=== PATIENT | female | born 2000 | race Caucasian/White ===

== ENCOUNTER 2021-01-22 09:39 | Inpatient (IN) ==
[2021-01-22] MEDS ORDERED: ONDANSETRON INJ 2 MG/ML 2 ML VIAL IV STA (09:57)
[2021-01-22] MEDS ORDERED: SODIUM CHLORIDE 0.9% 1000ML 1,000 ML IV STA (09:57)
[2021-01-22 10:23] LABS: Hematocrit (blood only) 38.8 % (37-47); Hemoglobin 12.9 g/dL (12.0-16.0); Mean Corpuscular Hemoglobin 24.4 pg (25-34); Mean Corpuscular Hgb Conc 33.2 g/dL (32-36); Mean Corpuscular Volume 73.5 fL (80-100); Mean Platelet Volume 9.3 fL (7.4-10.4); Platelet Count 290 K/uL (130-400); RDW Standard Deviation 37.2 fL (36.4-46.3); Red Blood Count 5.28 M/uL (4.2-5.4); White Blood Count 9.98 K/uL (4.8-10.8)
--- NOTE | 2021-01-22 10:32 | Emergency Department Note ---
Impression & Plan Small bowel obstruction, Crohn disease, Nausea & vomiting, Abdominal pain, Dehydration ED Provider Note NAME: BRITTANY GUTIERREZ AGE: 20 SEX: F : 2000 ARRIVES VIA: Walk-In INFORMANT: Patient, ED PROVIDER(S): John Sheehan MD Chief Complaint: Abdominal pain, nausea vomiting HPI: Patient does present with the above symptoms and states that she developed abdominal pain primarily in the mid and lower abdomen that is uncomfortable and nonradiating. The patient denies any dysuria hematuria. The patient does have a history of Crohn's and is unsure as to whether not this is a flare but the patient states that she is not had vomiting with a prior Crohn's flare. The patient denies any known sick contacts. The patient does live in [place] and did travel home over the holiday break but states that she has no known family overs or friends with known illness. Patient denies any fevers or chills. The patient did have innumerable episodes of nonbloody emesis this morning. Patient was unable to take anything this morning and the patient symptoms have been relatively constant. The patient did not want to take anything further at for greater symptoms. The patient is not vomiting in the last hour. ROS: See HPI for pertinent positives and negatives. A total of 10 systems were reviewed and otherwise negative. Past medical history: See below Surgical history: See below Social history: See below Physical Exam: GENERAL: Mildly uncomfortable in appearance, wearing a mask. EYE EXAM: Normal conjunctiva. PERRL, no anisocoria and EOM's grossly intact w/o pain. NECK: Supple, no nuchal rigidity, no adenopathy, non-tender. No signs of meningismus. FROM of the neck with good chin to chest and neck extension. No stridor. LUNGS: Clear to auscultation. Normal chest wall mechanics. HEART: NSR, no MRG. ABDOMEN: Abdomen soft, mid abdominal and lower abdominal pain most prominent left lower quadrant, normo-active bowel sounds, no masses, no rebound or guarding. BACK: No CVA TTP. SKIN: No rashes and no bruising. UPPER EXTREMITIES: Upper extremities are grossly normal. LOWER EXTREMITIES: Grossly normal, no edema. NEURO EXAM: A&O x3, cranial nerves II-XII grossly intact, normal speech, moves all 4 extremities on command w/o issue. Good finger to nose, no drift, no sensory deficits. Differential diagnoses: Gastroenteritis, food borne illness, infections, appendicitis, diverticulitis, inflammatory bowel disease, obstruction, GI bleed, biliary pathology, volvulus, as well as other pathologies. Course: Patient was seen and evaluated the bedside. Full history physical exam was perf ormed. Imaging Studies: See Below Cardiac monitoring: An order was placed for continuous cardiac monitoring. The monitor shows a rate of 92 with sinus rhythm. MDM: Patient was seen due to concern for abdominal pain nausea vomiting. Blood work was obtained along with CT abdomen pelvis. Patient treated with IV fluids and antiemetics. Patient declined any pain medication. Patient's blood work fairly unremarkable. Covid negative. CT did show concern for bowel obstruction. I did speak with the on-call general surgeon Dr. Estrada who recommended GI consult and admit to medicine. GI was consulted and recommended steroids. No NG at this time as the patient is had no further vomiting. I did speak with the on-call hospitalist Dr. Nino and the patient was admitted to the medicine service. Past Med/Surg History Medical History Crohn disease GERD (gastroesophageal reflux disease) Surgical History No pertinent past surgical history Family History Other Family history non-contributory Social History Smoking Status: Never smoker Hx Alcohol Use: Yes Alcohol type: beer and hard liquor Hx Substance Use: No Preferred Language: Luxembourger Communication Ability: Effective Bakery Clerk Required: No Beliefs That Will Affect Care: None Current Living Situation: Other Current Living Situation Comment: roomates current occupational status: student current occupation: [employer] student studying [employer] Other Information That Helps Us Care for You: No Feels Safe at Home: Yes Safety Concerns: Feels Safe At This Time Immunizations: Vaccinated for flu and COVID-19 Home Meds Home Medications Medication Instructions Recorded Confirmed adalimumab 40 mg/0.4 mL 40 mg SUBCUT UD 01/22/21 01/22/21 subcutaneous syringe kit (Humira(CF)) ergocalciferol (vitamin D2) 1,250 50,000 unit PO MONTHLY 01/22/21 01/22/21 mcg (50,000 unit) capsule mesalamine 500 mg 1,000 mg PO QID 01/22/21 01/22/21 capsule,controlled release (Pentasa) norgestimate 0.25 mg-ethinyl 1 tab PO DAILY 01/22/21 01/22/21 estradiol 35 mcg tablet (Sprintec (28)) omeprazole 20 mg capsule,delayed 20 mg PO DAILY 01/22/21 01/22/21 release Results & Data (ED) Vital Signs Vital Signs - 24 hr 01/22/21 09:41 01/22/21 11:23 Temperature 36.4 C L Temperature Source Temporal Artery Scan Pulse Rate 89 Pulse Rate [Right] 76 Pulse Rhythm [Right] Regular Pulse Strength [Right] Normal Respiratory Rate 18 16 Respiratory Effort / Characteristics Non-Labored Spontaneous Respiratory Depth Normal Blood Pressure 124/82 Blood Pressure [Right Arm] 137/75 Blood Pressure Mean 96 Blood Pressure Mean [Right Arm] 95 Blood Pressure Position Sitting Blood Pressure Position [Right Arm] Lying Pulse Oximetry 96 100 Oxygen Delivery Method Room Air Room Air Sepsis Recent Fever Within 48 Hours No Sepsis New/Unexplained Change in Mental Status No Sepsis Action Taken by Nursing No Action Required Home Medications Current Medication List: was personally reviewed by me Laboratory Data Attestation: I reviewed the patient's lab results. Result diagrams: 01/22/21 10:15 01/22/21 10:15 Lab Results 01/22/21 01/22/21 01/22/21 Range/Units 10:15 10:15 10:15 WBC 9.98 (4.8-10.8) K/uL RBC 5.28 (4.2-5.4) M/uL Hgb 12.9 (12.0-16.0) g/dL Hct 38.8 (37-47) % MCV 73.5 L (80-100) fL MCH 24.4 L (25-34) pg MCHC 33.2 (32-36) g/dL RDW Std Deviation 37.2 (36.4-46.3) fL RDW Coeff of Vik 14.0 (11.5-14.5) % Plt Count 290 (130-400) K/uL MPV 9.3 (7.4-10.4) fL Immature Gran % (Auto) 0.1 % Neut % (Auto) 75.3 % Lymph % (Auto) 22.4 % [place] % (Auto) 2.1 % Eos % (Auto) 0.0 % Baso % (Auto) 0.1 % Neut # (Auto) 7.51 H (1.4-6.5) K/uL Lymph # (Auto) 2.24 (1.2-3.4) K/uL [place] # (Auto) 0.21 (0.11-0.59) K/uL Eos # (Auto) 0.00 (0-0.5) K/uL Baso # (Auto) 0.01 (0-0.2) K/uL Immature Gran # (Auto) 0.01 (0.00-0.02) K/uL Neutrophils % (Manual) 68.5 % Lymphocytes % (Manual) 9.6 % Reactive Lymphs % (Man) 21.9 % Neutrophils # (Manual) 6.84 H (1.4-6.5) K/uL Total Absolute Neuts 6.84 H (1.4-6.5) K/uL Lymphocytes # (Manual) 0.96 L (1.2-3.4) K/uL Reactive Lymphs # 2.19 K/uL Total Abs Lymphocytes 3.14 (1.2-3.4) K/uL Microcytosis Present Sodium 136 (136-145) mmol/L Potassium 3.6 (3.5-5.1) mmol/L Chloride 108 H (98-107) mmol/L Carbon Dioxide 17 L (21-32) mmol/L Anion Gap 11.0 (3-11) BUN 15 (7-18) mg/dl Creatinine 0.89 (0.6-1.2) mg/dl Est Cr Clr Drug Dosing 86.1 ml/min Est GFR ( Amer) 108.1 ml/min Est GFR (Non-Af Amer) 93.3 ml/min BUN/Creatinine Ratio 17.1 (10-20) Glucose 118 H (70-99) mg/dl Calcium 9.8 (8.5-10.1) mg/dl Total Bilirubin 0.4 (0.2-1) mg/dl AST 22 (15-37) U/L ALT 24 (12-78) U/L Alkaline Phosphatase 69 (45-117) U/L C-Reactive Protein (0-0.29) mg/dl Total Protein 9.3 H (6.4-8.2) gm/dl Albumin 3.8 (3.4-5.0) gm/dl Globulin 5.5 H (2.5-4.0) gm/dl Albumin/Globulin Ratio 0.7 L (0.9-2) Lipase 255 (73-393) U/L TSH (0.300-4.500) uIu/ml Urine Color Urine Appearance (Clear) Urine pH (4.5-7.5) Ur Specific [place] (1.000-1.030) Urine Protein (Negative) Urine Glucose (UA) (Negative) Urine Ketones (Negative) Urine Blood (Negative) Urine Nitrite (Negative) Urine Bilirubin (Negative) Urine Urobilinogen (Negative) Ur Leukocyte Esterase (Negative) SARS-CoV-2, RNA, NAAT NEGATIVE (NEGATIVE) 01/22/21 01/22/21 Range/Units 10:15 13:10 WBC (4.8-10.8) K/uL RBC (4.2-5.4) M/uL Hgb (12.0-16.0) g/dL Hct (37-47) % MCV (80-100) fL MCH (25-34) pg MCHC (32-36) g/dL RDW Std Deviation (36.4-46.3) fL RDW Coeff of Vik (11.5-14.5) % Plt Count (130-400) K/uL MPV (7.4-10.4) fL Immature Gran % (Auto) % Neut % (Auto) % Lymph % (Auto) % [place] % (Auto) % Eos % (Auto) % Baso % (Auto) % Neut # (Auto) (1.4-6.5) K/uL Lymph # (Auto) (1.2-3.4) K/uL [place] # (Auto) (0.11-0.59) K/uL Eos # (Auto) (0-0.5) K/uL Baso # (Auto) (0-0.2) K/uL Immature Gran # (Auto) (0.00-0.02) K/uL Neutrophils % (Manual) % Lymphocytes % (Manual) % Reactive Lymphs % (Man) % Neutrophils # (Manual) (1.4-6.5) K/uL Total Absolute Neuts (1.4-6.5) K/uL Lymphocytes # (Manual) (1.2-3.4) K/uL Reactive Lymphs # K/uL Total Abs Lymphocytes (1.2-3.4) K/uL Microcytosis Sodium (136-145) mmol/L Potassium (3.5-5.1) mmol/L Chloride (98-107) mmol/L Carbon Dioxide (21-32) mmol/L Anion Gap (3-11) BUN (7-18) mg/dl Creatinine (0.6-1.2) mg/dl Est Cr Clr Drug Dosing ml/min Est GFR ( Amer) ml/min Est GFR (Non-Af Amer) ml/min BUN/Creatinine Ratio (10-20) Glucose (70-99) mg/dl Calcium (8.5-10.1) mg/dl Total Bilirubin (0.2-1) mg/dl AST (15-37) U/L ALT (12-78) U/L Alkaline Phosphatase (45-117) U/L C-Reactive Protein 0.54 H (0-0.29) mg/dl Total Protein (6.4-8.2) gm/dl Albumin (3.4-5.0) gm/dl Globulin (2.5-4.0) gm/dl Albumin/Globulin Ratio (0.9-2) Lipase (73-393) U/L TSH 1.860 (0.300-4.500) uIu/ml Urine Color Yellow Urine Appearance Clear (Clear) Urine pH 5.0 (4.5-7.5) Ur Specific [place] > 1.045 H (1.000-1.030) Urine Protein Negative (Negative) Urine Glucose (UA) Negative (Negative) Urine Ketones 3+ H (Negative) Urine Blood Negative (Negative) Urine Nitrite Negative (Negative) Urine Bilirubin Negative (Negative) Urine Urobilinogen Negative (Negative) Ur Leukocyte Esterase Negative (Negative) SARS-CoV-2, RNA, NAAT (NEGATIVE) Administered Medications Lactated Ringer's (Lr) 1,000 mls @ 125 mls/hr IV .Q8H LORENZO Stop: 02/21/21 13:29 Last Admin: 01/22/21 13:49 Dose: 125 mls/hr Documented by: [id number] Discontinued Medications Sodium Chloride (Nss 1000ml) 1,000 mls @ 999 mls/hr IV .Q1H1M STA Stop: 01/22/21 10:57 Last Infusion: 01/22/21 11:20 Dose: 0 mls/hr Documented by: [id number] Admin: 01/22/21 10:16 Dose: 999 mls/hr Documented by: [id number] Ioversol (Optiray 320 100ml) 95 ml IV ONCE ONE Stop: 01/22/21 11:16 Last Admin: 01/22/21 11:06 Dose: 95 ml Documented by: [id number] Morphine Sulfate (Morphine Sulfate 4 Mg/Ml 1 Ml Carp\Vial) 4 mg IV NOW STA Stop: 01/22/21 12:38 Last Admin: 01/22/21 12:59 Dose: 4 mg Documented by: [id number] Ondansetron HCl (Ondansetron Inj 2 Mg/Ml 2 Ml Vial) 4 mg IV NOW STA Stop: 01/22/21 09:58 Last Admin: 01/22/21 10:16 Dose: 4 mg Documented by: [id number] Imaging Data Radiologist's Impression: Abdomen/Pelvis CT 01/22/21 09:57 CT OF THE ABDOMEN AND PELVIS WITH CONTRAST CLINICAL HISTORY: Lower abdominal pain; vomiting; h/o crohn's COMPARISON STUDY: None. TECHNIQUE: Following IV administration of 95 mL of Optiray, axial images of the abdomen and pelvis were obtained from the lung bases to the proximal femurs. Images were reviewed in the axial, sagittal, and coronal planes. IV contrast was administered without complication. Automated exposure control was utilized for the study. A dose lowering technique was utilized adhering to the principles of ALARA. CT DOSE: 298.91 mGy.cm FINDINGS: Lung bases are unremarkable. No pneumatosis, free air or portal venous gas is present. The liver, spleen, adrenal glands, kidneys and pancreas are unremarkable. There is no hydronephrosis. No biliary or pancreatic ductal dilatation is present. There is no peripancreatic or pericholecystic infiltration. A small amount of abdominal and pelvic ascites is noted. Several loops of mildly dilated fluid-filled distal ileum are noted. There is stool within the terminal ileum. The small bowel appears to be dilated to the level of the ileocecal valve. There is no free air or abscess. No fistulas identified. The appendix is normal. The colon is decompressed. Equivocal wall thickening of the cecum may be due to underdistention. Major vasculature is patent. No acute fracture or suspicious lesion is identified within the visualized skeletal structures. IMPRESSION: Findings consistent with a small bowel obstruction. Multiple loops of mildly dilated distal ileum. Small bowel appears to be dilated to the level of the ileocecal valve. Possible etiologies for the small bowel obstruction include mucosal edema or occult stricture. No free air, abscess or fistula. Normal appendix. Small amount of associated abdominal and pelvic ascites. ACT 112: Negative or not required by law. Electronically signed by: Jae Francis M.D. 01/22/2021 11:41 AM Discharge Plan Visit Data Chief Complaint: Vomiting Stated Complaint: VOMITING FOR 6 HOURS, ABDOMINAL PAIN ED Provider: John Sheehan Discharge Problem: Small bowel obstruction, Crohn disease, Nausea & vomiting, Abdominal pain, Dehydration Patient Disposition: Admitted As Inpatient Discharge Instructions Interventions: ED Discharge Assessment Last Done: 01/22/21 14:07
[2021-01-22 10:48] LABS: ALC (manual) 3.14 K/uL (1.2-3.4); ANC (manual) 6.84 K/uL (1.4-6.5); Lymphocytes # (manual) 0.96 K/uL (1.2-3.4); Lymphocytes % (manual) 9.6 %; Neutrophils # (manual) 6.84 K/uL (1.4-6.5); Neutrophils % (manual) 68.5 %; Reactive Lymphocytes # (manual) 2.19 K/uL; Reactive Lymphocytes % (manual) 21.9 %
[2021-01-22 10:49] LABS: Albumin Level 3.8 gm/dl (3.4-5.0); BUN Creatinine Ratio 17.1 (10-20); Calcium 9.8 mg/dl (8.5-10.1); Creatinine Clr Calc Pharmacy 86.1 ml/min; Est GFR (African American) 108.1 ml/min; Est GFR (Non-African American) 93.3 ml/min; Microcytosis Present; Potassium 3.6 mmol/L (3.5-5.1)
[2021-01-22 10:52] LABS: Albumin Globulin Ratio 0.7 (0.9-2); Bilirubin,Total 0.4 mg/dl (0.2-1); Globulin 5.5 gm/dl (2.5-4.0); Total Protein 9.3 gm/dl (6.4-8.2)
[2021-01-22] MEDS ORDERED: OPTIRAY 320 100ml IV ONE (11:15)
--- NOTE | 2021-01-22 11:42 | CT Scan Report ---
CT OF THE ABDOMEN AND PELVIS WITH CONTRAST CLINICAL HISTORY: Lower abdominal pain; vomiting; h/o crohn's COMPARISON STUDY: None. TECHNIQUE: Following IV administration of 95 mL of Optiray, axial images of the abdomen and pelvis we re obtained from the lung bases to the proximal femurs. Images were reviewed in the axial, sagittal, and coronal planes. IV contrast was administered without complication. Automated exposure control wa s utilized for the study. A dose lowering technique was utilized adhering to the principles of ALARA . CT DOSE: 298.91 mGy.cm FINDINGS: Lung bases are unremarkable. No pneumatosis, free air or portal venous gas is present. The liver, spleen, adrenal glands, kidneys and pancreas are unremarkable. There is no hydronephrosis. No biliary or pancreatic ductal dilatation is present. There is no peripancreatic or pericholecystic inf iltration. A small amount of abdominal and pelvic ascites is noted. Several loops of mildly dilated f luid-filled distal ileum are noted. There is stool within the terminal ileum. The small bowel appears to be dilated to the level of the ileocecal valve. There is no free air or abscess. No fistulas iden tified. The appendix is normal. The colon is decompressed. Equivocal wall thickening of the cecum may be due to underdistention. Major vasculature is patent. No acute fracture or suspicious lesion is id entified within the visualized skeletal structures. IMPRESSION: Findings consistent with a small bowel obstruction. Multiple loops of mildly dilated distal ileum. Sm all bowel appears to be dilated to the level of the ileocecal valve. Possible etiologies for the smal l bowel obstruction include mucosal edema or occult stricture. No free air, abscess or fistula. Tessy l appendix. Small amount of associated abdominal and pelvic ascites. ACT 112: Negative or not required by law. Electronically signed by: Jae Francis M.D. 01/22/2021 11:41 AM
--- NOTE | 2021-01-22 12:12 | History & Physical Report ---
Date of Service January 22, 2021 Assessment & Plan (1) Small bowel obstruction: Plan: Presents with intractable nausea/vomiting, abdominal pain in the setting of known Crohn's disease on Humira and Pentasa CT abdomen/pelvis with small bowel obstruction with small bowel dilated down to the ileocecal valve Could be with terminal ileitis versus stricture -Admit to medical/surgical floor -Keep n.p.o. -Continue IV fluids for hydration -Follow CBC, CMP, magnesium, phosphorus and replete electrolytes as needed -Consult gastroenterology -No need for NG tube now as vomiting and nausea have resolved, but will place NG tube later if these return -Follow KUB in the morning -Discussed case with gastroenterology-we will consult them. Recommend starting IV Solu-Medrol 40 mg IV twice daily to treat Crohn's and possible terminal ileitis -No need for antibiotics at this point -We will request GI records from her primary correspondence representative in [place]- Dr. Cotton at [facility] pediatric gastroenterology -Pain control with IV morphine as needed -IV Zofran as needed for nausea (2) Nausea & vomiting: Plan: As above Secondary to SBO (3) Crohn disease: Plan: Diagnosed at age 5, follows with pediatric GI in [place] Was in remission for 14 years on Pentasa alone Developed 15 pounds of weight loss and difficulty with appetite and worsening microcytic anemia over 2020-was started on Humira in mid October and has had 6 doses so far We will request records from GI as above (4) Metabolic acidosis: Plan: Non-anion gap metabolic acidosis, serum bicarbonate 17 Most likely secondary to dehydration Hydrate IV fluids Follow CMP in the morning (5) GERD (gastroesophageal reflux disease): Plan: Continue PPI but convert to IV while n.p.o. (6) Microcytosis: Plan: MCV only 73, hemoglobin in normal range currently at 12 but is likely hemoconcentrated Likely secondary to Crohn's disease and iron deficiency anemia Check iron studies in the morning replace iron IV if needed Follow CBC Plan: DVT prophylaxis-SCDs Disposition-admit to medical/surgical floor Full code History of Present Illness Chief Complaint: Abdominal pain, vomiting Primary Care Provider: NO PCP This patient is a 20-year-old female with a history of Crohn's disease since age 5 previously controlled with Pentasa until the past year. She reports earlier this year she was having weight loss and poor appetite, worsening anemia, and her GI specialist in [place] started on Humira in mid October. She has received 6 doses since that time and was feeling improved until this morning. At 3 AM, she woke up with diffuse abdominal pain and intractable nausea/vomiting numerous times. There was no blood in her vomit. She did have a bowel movement this morning that was nonbloody. She denies any significant fevers but reported her temperature at home today was 37 C. She came to the ER received IV morphine, IV Zofran, 1 L of normal saline, and had a CT scan which showed a small bowel obstruction with multiple loops of mildly dilated distal ileum with small bowel dilated to the level of the ileocecal valve with etiology to include mucosal edema or occult stricture. There is no free air, abscess, or fistula, and she had a normal appendix. Her CBC was normal except for microcytosis, normal WBC count with neutrophilia. Her CMP was notable for a nonanion gap metabolic acidosis with a serum bicarbonate of 17, and lipase and LFTs were normal. She was afebrile and her vital signs were normal otherwise. Patient reports that she did have what seemed like a viral illness about 2 weeks ago with sore throat, enlarged tonsils, and cervical lymphadenopathy along with fevers. She was tested for flu, Covid, and mono all at that time and all were negative. She recovered from that but then did notice some mildly enlarged lymph nodes in the neck a few days ago. Other than that, she has been doing very well. She will be admitted for small bowel obstruction in the setting of known Crohn's disease. Home Medications Medication Instructions Recorded Confirmed Type adalimumab 40 mg/0.4 mL 40 mg SUBCUT UD 01/22/21 01/22/21 History subcutaneous syringe kit (Humira(CF)) ergocalciferol (vitamin D2) 1,250 50,000 unit PO MONTHLY 01/22/21 01/22/21 History mcg (50,000 unit) capsule mesalamine 500 mg 1,000 mg PO QID 01/22/21 01/22/21 History capsule,controlled release (Pentasa) norgestimate 0.25 mg-ethinyl 1 tab PO DAILY 01/22/21 01/22/21 History estradiol 35 mcg tablet (Sprintec (28)) omeprazole 20 mg capsule,delayed 20 mg PO DAILY 01/22/21 01/22/21 History release Past Med/Surg History Medical History Crohn disease GERD (gastroesophageal reflux disease) Surgical History No pertinent past surgical history Family History (Updated 01/22/21 @ 14:30 by Fransisca Nino MD) Other Family history non-contributory Social History (Updated 01/22/21 @ 14:31 by Fransisca Nino MD) Smoking Status: Never smoker Hx Alcohol Use: No Hx Substance Use: No current occupational status: student 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 Physical Exam Constitutional: WD/WN, vitals as above Eyes: PERRL, conjunctivae normal, anicteric sclerae ENMT: external ear and nose normal, oropharynx normal Neck: trachea midline, no thyromegaly Respiratory: normal respiratory effort, lungs clear to auscultation Cardiovascular: RRR, no murmur, no edema Chest (Breasts): Chest: normal inspection of chest Gastrointestinal (Abdomen): Inspection/Auscultation: abdomen normal to inspection and + hypoactive bowel sounds; abdomen not distended Percussion/Palpation: + abdomen tender (Mild in right lower quadrant without guarding or rebound) and abdomen soft; no guarding, no hepatosplenomegaly and no hernia Musculoskeletal: Extremities: extremities normal to inspection; no cyanosis and no clubbing Skin: no rashes, warm and dry Neurologic: moves all extremities and awake; no focal motor deficits Psychiatric: A+Ox3, euthymic affect Lymphatic: no lymphedema Results & Data Results & Data ([facility]) Vital Signs (Past 12 Hours) Vital Signs Temp Pulse Pulse Resp BP BP Pulse Ox 01/22/21 11:23 76 16 137/75 100 01/22/21 09:41 36.4 C L 89 18 124/82 96 Laboratory Results 01/22/21 01/22/21 01/22/21 Range/Units 13:10 10:15 10:15 WBC (4.8-10.8) K/uL RBC (4.2-5.4) M/uL Hgb (12.0-16.0) g/dL Hct (37-47) % MCV (80-100) fL MCH (25-34) pg MCHC (32-36) g/dL RDW Std Deviation (36.4-46.3) fL RDW Coeff of Vik (11.5-14.5) % Plt Count (130-400) K/uL MPV (7.4-10.4) fL Immature Gran % (Auto) % Neut % (Auto) % Lymph % (Auto) % [place] % (Auto) % Eos % (Auto) % Baso % (Auto) % Neut # (Auto) (1.4-6.5) K/uL Lymph # (Auto) (1.2-3.4) K/uL [place] # (Auto) (0.11-0.59) K/uL Eos # (Auto) (0-0.5) K/uL Baso # (Auto) (0-0.2) K/uL Immature Gran # (Auto) (0.00-0.02) K/uL Neutrophils % (Manual) % Lymphocytes % (Manual) % Reactive Lymphs % (Man) % Neutrophils # (Manual) (1.4-6.5) K/uL Total Absolute Neuts (1.4-6.5) K/uL Lymphocytes # (Manual) (1.2-3.4) K/uL Reactive Lymphs # K/uL Total Abs Lymphocytes (1.2-3.4) K/uL Microcytosis ESR Pending Sodium (136-145) mmol/L Potassium (3.5-5.1) mmol/L Chloride (98-107) mmol/L Carbon Dioxide (21-32) mmol/L Anion Gap (3-11) BUN (7-18) mg/dl Creatinine (0.6-1.2) mg/dl Est Cr Clr Drug Dosing ml/min Est GFR ( Amer) ml/min Est GFR (Non-Af Amer) ml/min BUN/Creatinine Ratio (10-20) Glucose (70-99) mg/dl Calcium (8.5-10.1) mg/dl Total Bilirubin (0.2-1) mg/dl AST (15-37) U/L ALT (12-78) U/L Alkaline Phosphatase (45-117) U/L C-Reactive Protein 0.54 H (0-0.29) mg/dl Total Protein (6.4-8.2) gm/dl Albumin (3.4-5.0) gm/dl Globulin (2.5-4.0) gm/dl Albumin/Globulin Ratio (0.9-2) Lipase (73-393) U/L TSH 1.860 (0.300-4.500) uIu/ml Urine Color Yellow Urine Appearance Clear (Clear) Urine pH 5.0 (4.5-7.5) Ur Specific [place] > 1.045 H (1.000-1.030) Urine Protein Negative (Negative) Urine Glucose (UA) Negative (Negative) Urine Ketones 3+ H (Negative) Urine Blood Negative (Negative) Urine Nitrite Negative (Negative) Urine Bilirubin Negative (Negative) Urine Urobilinogen Negative (Negative) Ur Leukocyte Esterase Negative (Negative) SARS-CoV-2, RNA, NAAT (NEGATIVE) 01/22/21 01/22/21 01/22/21 Range/Units 10:15 10:15 10:15 WBC 9.98 (4.8-10.8) K/uL RBC 5.28 (4.2-5.4) M/uL Hgb 12.9 (12.0-16.0) g/dL Hct 38.8 (37-47) % MCV 73.5 L (80-100) fL MCH 24.4 L (25-34) pg MCHC 33.2 (32-36) g/dL RDW Std Deviation 37.2 (36.4-46.3) fL RDW Coeff of Vik 14.0 (11.5-14.5) % Plt Count 290 (130-400) K/uL MPV 9.3 (7.4-10.4) fL Immature Gran % (Auto) 0.1 % Neut % (Auto) 75.3 % Lymph % (Auto) 22.4 % [place] % (Auto) 2.1 % Eos % (Auto) 0.0 % Baso % (Auto) 0.1 % Neut # (Auto) 7.51 H (1.4-6.5) K/uL Lymph # (Auto) 2.24 (1.2-3.4) K/uL [place] # (Auto) 0.21 (0.11-0.59) K/uL Eos # (Auto) 0.00 (0-0.5) K/uL Baso # (Auto) 0.01 (0-0.2) K/uL Immature Gran # (Auto) 0.01 (0.00-0.02) K/uL Neutrophils % (Manual) 68.5 % Lymphocytes % (Manual) 9.6 % Reactive Lymphs % (Man) 21.9 % Neutrophils # (Manual) 6.84 H (1.4-6.5) K/uL Total Absolute Neuts 6.84 H (1.4-6.5) K/uL Lymphocytes # (Manual) 0.96 L (1.2-3.4) K/uL Reactive Lymphs # 2.19 K/uL Total Abs Lymphocytes 3.14 (1.2-3.4) K/uL Microcytosis Present ESR Sodium 136 (136-145) mmol/L Potassium 3.6 (3.5-5.1) mmol/L Chloride 108 H (98-107) mmol/L Carbon Dioxide 17 L (21-32) mmol/L Anion Gap 11.0 (3-11) BUN 15 (7-18) mg/dl Creatinine 0.89 (0.6-1.2) mg/dl Est Cr Clr Drug Dosing 86.1 ml/min Est GFR ( Amer) 108.1 ml/min Est GFR (Non-Af Amer) 93.3 ml/min BUN/Creatinine Ratio 17.1 (10-20) Glucose 118 H (70-99) mg/dl Calcium 9.8 (8.5-10.1) mg/dl Total Bilirubin 0.4 (0.2-1) mg/dl AST 22 (15-37) U/L ALT 24 (12-78) U/L Alkaline Phosphatase 69 (45-117) U/L C-Reactive Protein (0-0.29) mg/dl Total Protein 9.3 H (6.4-8.2) gm/dl Albumin 3.8 (3.4-5.0) gm/dl Globulin 5.5 H (2.5-4.0) gm/dl Albumin/Globulin Ratio 0.7 L (0.9-2) Lipase 255 (73-393) U/L TSH (0.300-4.500) uIu/ml Urine Color Urine Appearance (Clear) Urine pH (4.5-7.5) Ur Specific [place] (1.000-1.030) Urine Protein (Negative) Urine Glucose (UA) (Negative) Urine Ketones (Negative) Urine Blood (Negative) Urine Nitrite (Negative) Urine Bilirubin (Negative) Urine Urobilinogen (Negative) Ur Leukocyte Esterase (Negative) SARS-CoV-2, RNA, NAAT NEGATIVE (NEGATIVE) Diagnostic Findings Abdomen/Pelvis CT 01/22/21 09:57 CT OF THE ABDOMEN AND PELVIS WITH CONTRAST CLINICAL HISTORY: Lower abdominal pain; vomiting; h/o crohn's COMPARISON STUDY: None. TECHNIQUE: Following IV administration of 95 mL of Optiray, axial images of the abdomen and pelvis were obtained from the lung bases to the proximal femurs. Images were reviewed in the axial, sagittal, and coronal planes. IV contrast was administered without complication. Automated exposure control was utilized for the study. A dose lowering technique was utilized adhering to the principles of ALARA. CT DOSE: 298.91 mGy.cm FINDINGS: Lung bases are unremarkable. No pneumatosis, free air or portal venous gas is present. The liver, spleen, adrenal glands, kidneys and pancreas are unremarkable. There is no hydronephrosis. No biliary or pancreatic ductal dilatation is present. There is no peripancreatic or pericholecystic infiltration. A small amount of abdominal and pelvic ascites is noted. Several loops of mildly dilated fluid-filled distal ileum are noted. There is stool within the terminal ileum. The small bowel appears to be dilated to the level of the ileocecal valve. There is no free air or abscess. No fistulas identified. The appendix is normal. The colon is decompressed. Equivocal wall thickening of the cecum may be due to underdistention. Major vasculature is patent. No acute fracture or suspicious lesion is identified within the visualized skeletal st ructures. IMPRESSION: Findings consistent with a small bowel obstruction. Multiple loops of mildly dilated distal ileum. Small bowel appears to be dilated to the level of the ileocecal valve. Possible etiologies for the small bowel obstruction include mucosal edema or occult stricture. No free air, abscess or fistula. Normal appendix. Small amount of associated abdominal and pelvic ascites. ACT 112: Negative or not required by law. Electronically signed by: Jae Francis M.D. 01/22/2021 11:41 AM Code Status & VTE Plan Code Status Full code VTE Prophylaxis Plan VTE Prophylaxis will be ordered: Yes PG Care Time/CCT Total # of Minutes Spent Total Time Spent with Patient: Total time spent is greater than 50% in coordination of care (as documented) at patient's floor/unit and/or counseling patient: Coding Level of Care Code 43322 Initial Inpt Care Lvl 3 Diagnoses GERD (gastroesophageal reflux disease) K21.9 Crohn disease K50.90 Small bowel obstruction K56.609 Metabolic acidosis E87.2 Nausea & vomiting R11.2 Microcytosis R71.8
[2021-01-22] MEDS ORDERED: MoRPHine SULFATE 4 MG/ML 1 ML CARP\\VIAL IV STA (12:37)
[2021-01-22 13:43] LABS: Appearance Urine Clear (Clear); Bilirubin Urine Negative (Negative); Blood Urine Negative (Negative); Color Urine Yellow; Glucose Urine UA Negative (Negative); Ketones Urine 3+ (Negative); Leukocyte Esterase Urine Negative (Negative); Nitrite Urine Negative (Negative); Protein Urine Negative (Negative); Specific Gravity Urine > 1.045 (1.000-1.030); Urobilinogen Urine Negative (Negative)
[2021-01-22] MEDS: LACTATED RINGER'S 1,000 ML IV SCH ×2 (13:49→21:15)
[2021-01-22] MEDS ORDERED: methylPREDNISolone 125 MG/2 ML VIAL IV STA (14:23)
[2021-01-22 14:27] LABS: C Reactive Protein 0.54 mg/dl (0-0.29); Thyroid Stimulating Hormone 1.86 uIu/ml (0.300-4.500)
[2021-01-22] MEDS ORDERED: MoRPHine SULFATE 2 MG/ML CARP IV PRN (14:27)
[2021-01-22] MEDS ORDERED: ONDANSETRON INJ 2 MG/ML 2 ML VIAL IV PRN (14:27)
[2021-01-22] MEDS ORDERED: PATIENT'S ALLERGY INFO NEEDS ENTERED SCH (14:30)
[2021-01-22] MEDS ORDERED: methylPREDNISolone 40 MG in SYRINGE 0 ML IV ONE (14:30)
[2021-01-22] MEDS ORDERED: PATIENT'S ALLERGY INFO NEEDS ENTERED STA (15:39)
[2021-01-22 15:41] LABS: Pregnancy Test, Urine Negative (Negative)
[2021-01-22] MEDS: PANTOprazole 40 MG in SYRINGE 0 ML IV SCH (16:11)
[2021-01-22] MEDS: BIRTH CONTROL - ORDER AWAITING ACTION SCH (16:13)
[2021-01-22] MEDS: methylPREDNISolone 40 MG in SYRINGE 0 ML IV SCH (21:12)
[2021-01-23] MEDS: BIRTH CONTROL - ORDER AWAITING ACTION SCH ×2 (01:15→23:57)
[2021-01-23] MEDS: LACTATED RINGER'S 1,000 ML IV SCH ×3 (05:07→21:43)
[2021-01-23 06:19] LABS: Basophils # (auto) 0.01 K/uL (0-0.2); Basophils % (auto) 0.1 %; Hemoglobin 10.4 g/dL (12.0-16.0); Immature Granulocytes # (auto) 0.02 K/uL (0.00-0.02); Immature Granulocytes % (auto) 0.2 %; Lymphocytes # (auto) 2.02 K/uL (1.2-3.4); Lymphocytes % (auto) 22.4 %; Mean Corpuscular Hemoglobin 24.2 pg (25-34); Mean Corpuscular Hgb Conc 32.5 g/dL (32-36); Mean Corpuscular Volume 74.6 fL (80-100); Mean Platelet Volume 9.2 fL (7.4-10.4); Monocytes # (auto) 0.35 K/uL (0.11-0.59); Monocytes % (auto) 3.9 %; Neutrophils % (auto) 73.4 %; Platelet Count 249 K/uL (130-400); RDW Coefficient of Variation 14.2 % (11.5-14.5); RDW Standard Deviation 38.4 fL (36.4-46.3); Red Blood Count 4.29 M/uL (4.2-5.4)
[2021-01-23 06:54] LABS: RBC Morphology Unremarkable
[2021-01-23] MEDS ORDERED: ACETAMINOPHEN 1,000 MG/100 ML VIAL IV PRN (07:14)
[2021-01-23 07:25] LABS: Alanine Aminotransferase 18 U/L (12-78); Albumin Globulin Ratio 0.6 (0.9-2); Albumin Level 2.6 gm/dl (3.4-5.0); Alkaline Phosphatase 53 U/L (45-117); Aspartate Aminotransferase 16 U/L (15-37); BUN Creatinine Ratio 20.5 (10-20); Bilirubin,Total 0.4 mg/dl (0.2-1); Blood Urea Nitrogen 13 mg/dl (7-18); Calcium 8.3 mg/dl (8.5-10.1); Chloride 109 mmol/L (98-107); Creatinine Clr Calc Pharmacy 145.1 ml/min; Est GFR (African American) > 150.0 ml/min; Est GFR (Non-African American) 129.8 ml/min; Ferritin 7.3 ng/ml (8-388); Globulin 4.5 gm/dl (2.5-4.0); Glucose 108 mg/dl (70-99); Iron 68 mcg/dl (35-150); Potassium 3.9 mmol/L (3.5-5.1); Sodium 137 mmol/L (136-145); Total Iron Binding Capacity 456 mcg/dl (250-450); Total Protein 7.1 gm/dl (6.4-8.2); Transferrin 355 mg/dl (200-360); Transferrin (FE) Percent Satur 14 % (15-50)
[2021-01-23 08:08] LABS: Carbon Dioxide 21 mmol/L (21-32)
--- NOTE | 2021-01-23 08:45 | XRay Report ---
XR KUB/Abdomen 1 view CLINICAL HISTORY: Follow-up suspected small bowel obstruction.. COMPARISON STUDY: CT of the abdomen and pelvis from 01/22/2021 TECHNIQUE: Single view of the abdomen. FINDINGS: The bowel gas pattern is within normal limits without evidence for dilatation or obstruction. There i s no radiographic evidence for small bowel obstruction. Air and fecal material are seen within nondis tended colon. There is no evidence for organomegaly or gross intra-abdominal mass. No abnormal calcif ications are seen along the course of the urinary tracts bilaterally. No acute osseous pathology. IMPRESSION: 1.No acute intra-abdominal abnormality. No radiographic evidence for small bowel obstruction. ACT 112: Negative or not required by law. Electronically signed by: Nathaniel Arevalo M.D. 01/23/2021 8:43 AM
[2021-01-23] MEDS: methylPREDNISolone 40 MG in SYRINGE 0 ML IV SCH ×2 (09:21→21:31)
--- NOTE | 2021-01-23 10:37 | Gastrointestinal Consultation ---
Date of Consultation January 23, 2021 Assessment & Plan (1) Crohn disease: (2) Small bowel obstruction: -Continue IV Solumedrol 40 mg q 12 hours; Anticipate discharge on 8 week Prednisone taper -Given improvement in symptoms and abdominal imaging, could advance to liquid diet if patient feels able -Could consider repeating outpatient MRE & colonoscopy given new concerns for strictured ileum, but will defer to her primary truss builder upon discharge -Patient continues on Humira for now; further treatment decisions per primary team -Supportive care per primary team Supervising Physician Co-Signing Physician Notes Agree with MOHSEN Robb as above Abd: Soft, NT, ND, +BS Continue current therapy and supportive care I did leave a message with her Pediatric Water Proofer at [facility] in [place], and will await his call back for further discharge planning Discussed case with Mother who was at bedside, and reviewed prior MRE from August History of Present Illness Reason for Consultation: Crohn's Disease, SBO Attending Physician: Fransisca Nino MD History of Present Illness Patient is a 20 yo female with a past medical history of Crohn's Ileitis who presented to the ER with abdominal pain. Patient was diagnosed at age 5 with Crohn's Disease. She is currently managed by GI in [place] ([facility]). She was reportedly treated with Pentasa. She reports she was in remission from age 6 to 19. She had a colonoscopy in June 2020, but does not have copies of this report. She notes that earlier in the year she developed weight loss, anemia, & decreased appetite. She was recently started on Humira in response to her disease change. She notes that she has had 6 doses thus far. She notes that early in the AM on 01/22/21 she awakened with severe diffuse abdominal pain. She presented to [facility]. A CT scan showed a small bowel obstruction with multiple loops of dilated distal ileum with small bowel dilated to the IC valve. Concern was for mucosal edema or occult stricture. WBC count negative. CMP showed nonanion gap metabolic acidosis on admission. No concerns with LFTs. She reports improvement of her abdominal pain today. She has not moved her bowels but notes she is passing gas. A repeat abdominal xray today indicated no evidence of small bowel obstruction. She notes she was due for a follow-up appointment with her truss builder last Wednesday but had to cancel her appointment. She is working to reschedule this. She is currently on IV Solumedrol 40 mg q12 hrs. Allergies Allergy/AdvReac Type Severity Reaction Status Date / Time amoxicillin [From Augmentin] AdvReac Intermediate Hives Verified 01/23/21 13:25 clavulanic acid AdvReac Intermediate Hives Verified 01/23/21 13:25 [From Augmentin] Home Medications Medication Instructions Recorded Confirmed Type adalimumab 40 mg/0.4 mL 40 mg SUBCUT UD 01/22/21 01/22/21 History subcutaneous syringe kit (Humira(CF)) ergocalciferol (vitamin D2) 1,250 50,000 unit PO MONTHLY 01/22/21 01/22/21 History mcg (50,000 unit) capsule mesalamine 500 mg 1,000 mg PO QID 01/22/21 01/22/21 History capsule,controlled release (Pentasa) norgestimate 0.25 mg-ethinyl 1 tab PO DAILY 01/22/21 01/22/21 History estradiol 35 mcg tablet (Sprintec (28)) omeprazole 20 mg capsule,delayed 20 mg PO DAILY 01/22/21 01/22/21 History release Patient History Medical History Crohn disease GERD (gastroesophageal reflux disease) Surgical History No pertinent past surgical history Family History Other Family history non-contributory Social History Smoking Status: Never smoker Hx Alcohol Use: Yes Alcohol type: beer and hard liquor Hx Substance Use: No Preferred Language: Telugu Communication Ability: Effective [employer] Required: No Beliefs That Will Affect Care: None Current Living Situation: Other Current Living Situation Comment: roomates current occupational status: student 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 Other Information That Helps Us Care for You: No Feels Safe at Home: Yes Safety Concerns: Feels Safe At This Time Assistive Devices: None Review of Systems Constitutional: no fever and no chills Respiratory: no cough and no dyspnea Cardiovascular: no chest pain Gastrointestinal: no abdominal pain, no diarrhea/loose stools and no blood in stools Neurologic: no problem reported Psychiatric: no problem reported Hematologic / Lymphatic: no problem reported Physical Exam Constitutional: well developed Respiratory: normal respiratory effort Cardiovascular: Extremities: no edema Gastrointestinal (Abdomen): Inspection/Auscultation: abdomen normal to inspection and normal bowel sounds; abdomen not distended Percussion/Palpation: abdomen soft; abdomen nontender Psychiatric: Orientation: alert and oriented x 3 Results & Data ([facility]) Vital Signs (Past 12 Hours) Vital Signs Temp Pulse Resp BP Pulse Ox 01/23/21 07:29 36.9 C 72 14 111/58 L 98 PG Care Time/CCT Total # of Minutes Spent Total Time Spent with Patient: Total time spent is greater than 50% in coordination of care (as documented) at patient's floor/unit and/or counseling patient: Coding Level of Care Code 99958 Office/OBS Consult Lvl 4 Diagnoses Crohn disease K50.912 Digestive disease complication type: with intestinal obstruction Gastrointestinal tract location: unspecified location Small bowel obstruction K56.609 (1) Crohn disease Digestive disease complication type: with intestinal obstruction Gastrointestinal tract location: unspecified location Qualified Code(s): K50.91 2 - Crohn's disease, unspecified, with intestinal obstruction
[2021-01-23] MEDS ORDERED: IRON SUCROSE 300 MG in SODIUM CHLORIDE 0.9% 250 ML IV ONE (11:00)
[2021-01-23] MEDS: PANTOprazole 40 MG in SYRINGE 0 ML IV SCH (11:18)
[2021-01-23] MEDS: NORGESTIMATE/ETHINYL ESTRAD 0.25/0.035MG DSPK PO SCH (11:18)
[2021-01-23] MEDS ORDERED: ACETAMINOPHEN 325 MG TAB PO PRN (13:27)
--- NOTE | 2021-01-23 13:27 | Hospitalist Progress Note ---
Date of Service January 23, 2021 Assessment & Plan (1) Small bowel obstruction: Plan: Presents with intractable nausea/vomiting, abdominal pain in the setting of known Crohn's disease on Humira and Pentasa CT abdomen/pelvis with small bowel obstruction with small bowel dilated down to the ileocecal valve Could be with terminal ileitis versus stricture Much improved today after starting IV SOlu Medrol-plan to transition to po course of prednisone on discharge x 8 wks as per GI rec however she reports prior h/o intolerance to prednisone-will discuss with her primary GI -passing flatus, no BM, no further nausea, no abd pain, KUB no obstruciton on 01/23 -adv diet to clears and to low fiber over next 24 hours -Continue IV fluids for hydration -Consult gastroenterology appreciated -No need for NG tube now as vomiting and nausea have resolved -discussed her care with her primary GI Dr. Riley at [facility] pediatric gastroenterology -Pain control with IV morphine as needed -IV Zofran as needed for nausea (2) Nausea & vomiting: Plan: As above Secondary to SBO, now resolved (3) Crohn disease: Plan: Diagnosed at age 5, follows with pediatric GI in [place] Was in remission for 14 years on Pentasa alone Developed 15 pounds of weight loss and difficulty with appetite and worsening microcytic anemia over 2020-was started on Humira in mid October and has had 6 doses so far Had ileitis as per verbal report from her GI on phone in Mar 2020, but had normal MRE this past summer restart home Pentasa now that chris po (4) Metabolic acidosis: Plan: Non-anion gap metabolic acidosis, serum bicarbonate 17, now resolved with IVF hydration (5) GERD (gastroesophageal reflux disease): Plan: Continue PPI but convert back to po now that diet being advanced (6) Microcytosis: Plan: MCV only 73, hemoglobin in normal range currently at 12 but is likely hemoconcentrated on admission hgb down to 10 today Fe studies with ferritin only 7, transferrin sat 14% -start Venofer 300mg IV once daily x 2 doses while here Likely secondary to Crohn's disease and iron deficiency anemia Plan: DVT prophylaxis-SCDs Disposition-continued stay but most likely dc tomorrow Full code Admission and Anticipated Discharge Date Admission Date: January 22, 2021 Subjective feeling much better, passing flatus, no BM yet. No nausea at all. No abd pains. Review of Systems Review of Systems: All systems reviewed & are unremarkable except as noted in HPI & below Physical Exam Constitutional: WD/WN, vitals as above Neck: trachea midline, no thyromegaly Respiratory: normal respiratory effort, lungs clear to auscultation Cardiovascular: RRR, no murmur, no edema Chest (Breasts): Chest: normal inspection of chest Gastrointestinal (Abdomen): normal bowel sounds, soft, nontender, no hepatosplenomegaly Musculoskeletal: Extremities: extremities normal to inspection; no cyanosis and no clubbing Skin: no rashes, warm and dry Neurologic: moves all extremities and awake; no focal motor deficits Psychiatric: A+Ox3, euthymic affect Lymphatic: no lymphedema Results & Data Results & Data ([facility]) Vital Signs (Past 12 Hours) Vital Signs Temp Pulse Resp BP Pulse Ox 01/23/21 11:21 36.8 C 65 16 110/69 98 01/23/21 07:29 36.9 C 72 14 111/58 L 98 Laboratory Results 01/23/21 01/23/21 01/22/21 Range/Units 06:03 06:03 15:27 WBC 9.00 (4.8-10.8) K/uL RBC 4.29 (4.2-5.4) M/uL Hgb 10.4 L (12.0-16.0) g/dL Hct 32.0 L (37-47) % MCV 74.6 L (80-100) fL MCH 24.2 L (25-34) pg MCHC 32.5 (32-36) g/dL RDW Std Deviation 38.4 (36.4-46.3) fL RDW Coeff of Vik 14.2 (11.5-14.5) % Plt Count 249 (130-400) K/uL MPV 9.2 (7.4-10.4) fL Immature Gran % (Auto) 0.2 Neut % (Auto) 73.4 Lymph % (Auto) 22.4 [place] % (Auto) 3.9 Eos % (Auto) 0.0 Baso % (Auto) 0.1 Neut # (Auto) 6.60 H Lymph # (Auto) 2.02 [place] # (Auto) 0.35 Eos # (Auto) 0.00 Baso # (Auto) 0.01 Immature Gran # (Auto) 0.02 RBC Morphology Unremarkable ESR (0-20) mm/hr Sodium 137 (136-145) mmol/L Potassium 3.9 (3.5-5.1) mmol/L Chloride 109 H (98-107) mmol/L Carbon Dioxide 21 (21-32) mmol/L Anion Gap 7.0 (3-11) BUN 13 (7-18) mg/dl Creatinine 0.62 (0.6-1.2) mg/dl Est Cr Clr Drug Dosing 145.1 ml/min Est GFR ( Amer) > 150.0 ml/min Est GFR (Non-Af Amer) 129.8 ml/min BUN/Creatinine Ratio 20.5 H (10-20) Glucose 108 H (70-99) mg/dl Calcium 8.3 L D (8.5-10.1) mg/dl Phosphorus 4.0 (2.5-4.9) mg/dl Magnesium 2.0 (1.8-2.4) mg/dl Iron 68 (35-150) mcg/dl TIBC 456 H (250-450) mcg/dl Transferrin 355 (200-360) mg/dl Transferrin % Sat 14 L (15-50) % Ferritin 7.3 L (8-388) ng/ml Total Bilirubin 0.4 (0.2-1) mg/dl AST 16 (15-37) U/L ALT 18 (12-78) U/L Alkaline Phosphatase 53 (45-117) U/L C-Reactive Protein (0-0.29) mg/dl Total Protein 7.1 D (6.4-8.2) gm/dl Albumin 2.6 L (3.4-5.0) gm/dl Globulin 4.5 H (2.5-4.0) gm/dl Albumin/Globulin Ratio 0.6 L (0.9-2) TSH (0.300-4.500) uIu/ml Urine Color Urine Appearance (Clear) Urine pH (4.5-7.5) Ur Specific [place] (1.000-1.030) Urine Protein (Negative) Urine Glucose (UA) (Negative) Urine Ketones (Negative) Urine Blood (Negative) Urine Nitrite (Negative) Urine Bilirubin (Negative) Urine Urobilinogen (Negative) Ur Leukocyte Esterase (Negative) Urine Test Negative (Negative) 01/22/21 01/22/21 01/22/21 Range/Units 13:10 10:15 10:15 WBC (4.8-10.8) K/uL RBC (4.2-5.4) M/uL Hgb (12.0-16.0) g/dL Hct (37-47) % MCV (80-100) fL MCH (25-34) pg MCHC (32-36) g/dL RDW Std Deviation (36.4-46.3) fL RDW Coeff of Vik (11.5-14.5) % Plt Count (130-400) K/uL MPV (7.4-10.4) fL Immature Gran % (Auto) Neut % (Auto) Lymph % (Auto) [place] % (Auto) Eos % (Auto) Baso % (Auto) Neut # (Auto) Lymph # (Auto) [place] # (Auto) Eos # (Auto) Baso # (Auto) Immature Gran # (Auto) RBC Morphology ESR 63 H (0-20) mm/hr Sodium (136-145) mmol/L Potassium (3.5-5.1) mmol/L Chloride (98-107) mmol/L Carbon Dioxide (21-32) mmol/L Anion Gap (3-11) BUN (7-18) mg/dl Creatinine (0.6-1.2) mg/dl Est Cr Clr Drug Dosing ml/min Est GFR ( Amer) ml/min Est GFR (Non-Af Amer) ml/min BUN/Creatinine Ratio (10-20) Glucose (70-99) mg/dl Calcium (8.5-10.1) mg/dl Phosphorus (2.5-4.9) mg/dl Magnesium (1.8-2.4) mg/dl Iron (35-150) mcg/dl TIBC (250-450) mcg/dl Transferrin (200-360) mg/dl Transferrin % Sat (15-50) % Ferritin (8-388) ng/ml Total Bilirubin (0.2-1) mg/dl AST (15-37) U/L ALT (12-78) U/L Alkaline Phosphatase (45-117) U/L C-Reactive Protein 0.54 H (0-0.29) mg/dl Total Protein (6.4-8.2) gm/dl Albumin (3.4-5.0) gm/dl Globulin (2.5-4.0) gm/dl Albumin/Globulin Ratio (0.9-2) TSH 1.860 (0.300-4.500) uIu/ml Urine Color Yellow Urine Appearance Clear (Clear) Urine pH 5.0 (4.5-7.5) Ur Specific [place] > 1.045 H (1.000-1.030) Urine Protein Negative (Negative) Urine Glucose (UA) Negative (Negative) Urine Ketones 3+ H (Negative) Urine Blood Negative (Negative) Urine Nitrite Negative (Negative) Urine Bilirubin Negative (Negative) Urine Urobilinogen Negative (Negative) Ur Leukocyte Esterase Negative (Negative) Urine Test (Negative) 01/22/21 Range/Units 10:15 WBC (4.8-10.8) K/uL RBC (4.2-5.4) M/uL Hgb (12.0-16.0) g/dL Hct (37-47) % MCV (80-100) fL MCH (25-34) pg MCHC (32-36) g/dL RDW Std Deviation (36.4-46.3) fL RDW Coeff of Vik (11.5-14.5) % Plt Count (130-400) K/uL MPV (7.4-10.4) fL Immature Gran % (Auto) [employer] Neut % (Auto) [employer] Lymph % (Auto) [employer] [place] % (Auto) [employer] Eos % (Auto) [employer] Baso % (Auto) [employer] Neut # (Auto) [employer] Lymph # (Auto) [employer]ARDENER [place] # (Auto) [employer] HARDENER Eos # (Auto) CY[employer] P[employer] HARDENER Baso # (Auto) CY[employer] P[employer] HARDENER Immature Gran # (Auto) CY[employer]ARDENER RBC Morphology ESR (0-20) mm/hr Sodium (136-145) mmol/L Potassium (3.5-5.1) mmol/L Chloride (98-107) mmol/L Carbon Dioxide (21-32) mmol/L Anion Gap (3-11) BUN (7-18) mg/dl Creatinine (0.6-1.2) mg/dl Est Cr Clr Drug Dosing ml/min Est GFR ( Amer) ml/min Est GFR (Non-Af Amer) ml/min BUN/Creatinine Ratio (10-20) Glucose (70-99) mg/dl Calcium (8.5-10.1) mg/dl Phosphorus (2.5-4.9) mg/dl Magnesium (1.8-2.4) mg/dl Iron (35-150) mcg/dl TIBC (250-450) mcg/dl Transferrin (200-360) mg/dl Transferrin % Sat (15-50) % Ferritin (8-388) ng/ml Total Bilirubin (0.2-1) mg/dl AST (15-37) U/L ALT (12-78) U/L Alkaline Phosphatase (45-117) U/L C-Reactive Protein (0-0.29) mg/dl Total Protein (6.4-8.2) gm/dl Albumin (3.4-5.0) gm/dl Globulin (2.5-4.0) gm/dl Albumin/Globulin Ratio (0.9-2) TSH (0.300-4.500) uIu/ml Urine Color Urine Appearance (Clear) Urine pH (4.5-7.5) Ur Specific [place] (1.000-1.030) Urine Protein (Negative) Urine Glucose (UA) (Negative) Urine Ketones (Negative) Urine Blood (Negative) Urine Nitrite (Negative) Urine Bilirubin (Negative) Urine Urobilinogen (Negative) Ur Leukocyte Esterase (Negative) Urine Test (Negative) Diagnostic Findings KUB image personally reviewed by me and agree with the following report: KUB X-Ray 01/23/21 07:00 XR KUB/Abdomen 1 view CLINICAL HISTORY: Follow-up suspected small bowel obstruction.. COMPARISON STUDY: CT of the abdomen and pelvis from 01/22/2021 TECHNIQUE: Single view of the abdomen. FINDINGS: The bowel gas pattern is within normal limits without evidence for dilatation or obstruction. There is no radiographic evidence for small bowel obstruction. Air and fecal material are seen within nondistended colon. There is no evidence for organomegaly or gross intra-abdominal mass. No abnormal calcifications are seen along the course of the urinary tracts bilaterally. No acute osseous pathology. IMPRESSION: 1.No acute intra-abdominal abnormality. No radiographic evidence for small bowel obstruction. ACT 112: Negative or not required by law. Electronically signed by: Nathaniel Arevalo M.D. 01/23/2021 8:43 AM PG Care Time/CCT Total # of Minutes Spent Total Time Spent with Patient: Total time spent is greater than 50% in coordination of care (as documented) at patient's floor/unit and/or counseling patient: Coding Level of Care Code 79634 Subseq Hosp Care Lvl 3 Diagnoses Small bowel obstruction K56.609 Nausea & vomiting R11.2 Vomiting Intractability: non-intractable Vomiting type: unspecified Crohn disease K50.912 Digestive disease complication type: with intestinal obstruction Gastrointestinal tract location: unspecified location Metabolic acidosis E87.2 GERD (gastroesophageal reflux disease) K21.9 Microcytosis R71.8 (1) Nausea & vomiting Vomiting Intractability: non-intractable Vomiting type: unspecified Qualified Code(s): R11.2 - Nausea with vomiting, unspecified (2) Crohn disease Digestive disease complication type: with intestinal obstruction Gastrointestinal tract location: unspecified location Qualified Code(s): K50.912 - Crohn's disease, unspecified, with intestinal obstruction
[2021-01-23] MEDS ORDERED: MESALAMINE 250 MG CAPCR PO SCH ×2 (17:00)
[2021-01-23] MEDS: MESALAMINE 1 EA PO SCH ×2 (18:40→21:30)
[2021-01-24] MEDS: LACTATED RINGER'S 1,000 ML IV SCH ×2 (05:26→13:34)
[2021-01-24] MEDS: methylPREDNISolone 40 MG in SYRINGE 0 ML IV SCH (07:54)
[2021-01-24] MEDS: MESALAMINE 1 EA PO SCH ×3 (07:54→18:06)
[2021-01-24] MEDS: NORGESTIMATE/ETHINYL ESTRAD 0.25/0.035MG DSPK PO SCH (07:55)
[2021-01-24] MEDS ORDERED: PANTOprazole 40 MG TAB PO SCH (09:00)
[2021-01-24] MEDS ORDERED: IRON SUCROSE 300 MG in SODIUM CHLORIDE 0.9% 250 ML IV SCH (09:00)
--- NOTE | 2021-01-24 10:54 | Gastroenterology Progress Note ---
Date of Service January 24, 2021 Assessment & Plan (1) Small bowel obstruction: (2) Crohn disease: Plan: -Continue IV Solumedrol 40 mg q 12 hours -Continue diet as tolerated -Awaiting call back from primary GI provider -Patient continues on Humira for now; further treatment decisions per primary team -Supportive care per primary team -Will need outpatient follow-up with her gastroenterology team Admission and Anticipated Discharge Date Admission Date: January 22, 2021 Supervising Physician Co-Signing Physician Notes Agree with MOHSEN Robb as above Abd: Soft, NT, ND, +BS Will need Budesonide 9 mg by mouth daily for 8 weeks Followup with Home GI DANYA to discuss decreasing interval of Humira versus swi tching to alternative therapy Also, due to severity of disease with Fistula/Fibrostenosis, could consider dual therapy with Thiopurine Subjective Patient is a 20 yo female with Crohn's Disease and small bowel obstruction. She notes no abdominal pain. She denies bowel movements but is passing flatus. She reports she is tolerating a liquid diet and did eat toast this morning without incident. No new complaints at present. Review of Systems Constitutional: no fever Gastrointestinal: no abdominal pain and no diarrhea/loose stools Physical Exam Constitutional: WD/WN, vitals as above Respiratory: normal respiratory effort Cardiovascular: Rate/Rhythm: regular rate Gastrointestinal (Abdomen): normal bowel sounds, soft, nontender, no hepatosplenomegaly Psychiatric: Orientation: alert and oriented x 3 Results & Data Results & Data ([facility]) Vital Signs (Past 12 Hours) Vital Signs Temp Pulse Resp BP Pulse Ox 01/24/21 07:51 36.8 C 63 18 120/72 99 PG Care Time/CCT Total # of Minutes Spent Total Time Spent with Patient: Total time spent is greater than 50% in coordination of care (as documented) at patient's floor/unit and/or counseling patient: Coding Level of Care Code 97876 Subseq Hosp Care Lvl 3 Diagnoses Small bowel obstruction K56.609 Crohn disease K50.912 Digestive disease complication type: with intestinal obstruction Gastrointestinal tract location: unspecified location (1) Crohn disease Digestive disease complication type: with intestinal obstruction Gastrointestinal tract location: unspecified location Qualified Code(s): K50.912 - Crohn's disease, unspecified, with intestinal obstruction
--- NOTE | 2021-01-24 17:14 | Discharge Summary ---
Date of Service January 24, 2021 Admission HPI Per Admitting Provider This patient is a 20-year-old female with a history of Crohn's disease since age 5 previously controlled with Pentasa until the past year. She reports earlier this year she was having weight loss and poor appetite, worsening anemia, and her GI specialist in [place] started on Humira in mid October. She has received 6 doses since that time and was feeling improved until this morning. At 3 AM, she woke up with diffuse abdominal pain and intractable nausea/vomiting numerous times. There was no blood in her vomit. She did have a bowel movement this morning that was nonbloody. She denies any significant fevers but reported her temperature at home today was 37 C. She came to the ER received IV morphine, IV Zofran, 1 L of normal saline, and had a CT scan which showed a small bowel obstruction with multiple loops of mildly dilated distal ileum with small bowel dilated to the level of the ileocecal valve with etiology to include mucosal edema or occult stricture. There is no free air, abscess, or fistula, and she had a normal appendix. Her CBC was normal except for microcytosis, normal WBC count with neutrophilia. Her CMP was notable for a nonanion gap metabolic acidosis with a serum bicarbon ate of 17, and lipase and LFTs were normal. She was afebrile and her vital signs were normal otherwise. Patient reports that she did have what seemed like a viral illness about 2 weeks ago with sore throat, enlarged tonsils, and cervical lymphadenopathy along with fevers. She was tested for flu, Covid, and mono all at that time and all were negative. She recovered from that but then did notice some mildly enlarged lymph nodes in the neck a few days ago. Other than that, she has been doing very well. She will be admitted for small bowel obstruction in the setting of known Crohn's disease. Principal Diagnosis SBO, Crohn's disease Discharge Exam Constitutional WD/WN, vitals as above Neck trachea midline, no thyromegaly Respiratory normal respiratory effort, lungs clear to auscultation Cardiovascular RRR, no murmur, no edema Chest (Breasts) Chest: normal inspection of chest Gastrointestinal (Abdomen) normal bowel sounds, soft, nontender, no hepatosplenomegaly Musculoskeletal Extremities: extremities normal to inspection; no cyanosis and no clubbing Skin no rashes, warm and dry Neurologic moves all extremities and awake; no focal motor deficits Psychiatric A+Ox3, euthymic affect Lymphatic no lymphedema Discharge Data Allergies Allergy/AdvReac Type Severity Reaction Status Date / Time amoxicillin [From Augmentin] AdvReac Intermediate Hives Verified 01/23/21 13:25 clavulanic acid AdvReac Intermediate Hives Verified 01/23/21 13:25 [From Augmentin] Beef Containing Products AdvReac Mild Abdominal Verified 01/23/21 18:16 Pain lactose AdvReac Mild Abdominal Verified 01/23/21 18:16 Pain Consultations 01/22/21 12:04 ED Decision to Admit Stat 01/22/21 13:41 Consult Gastroenterology Routine Ordered Studies 01/22/21 09:57 CT abd pelvis IV con only Stat Abdomen/Pelvis CT 01/22/21 09:57 CT OF THE ABDOMEN AND PELVIS WITH CONTRAST CLINICAL HISTORY: Lower abdominal pain; vomiting; h/o crohn's COMPARISON STUDY: None. TECHNIQUE: Following IV administration of 95 mL of Optiray, axial images of the abdomen and pelvis were obtained from the lung bases to the proximal femurs. Images were reviewed in the axial, sagittal, and coronal planes. IV contrast was administered without complication. Automated exposure control was utilized for the study. A dose lowering technique was utilized adhering to the principles of ALARA. CT DOSE: 298.91 mGy.cm FINDINGS: Lung bases are unremarkable. No pneumatosis, free air or portal venous gas is present. The liver, spleen, adrenal glands, kidneys and pancreas are unr emarkable. There is no hydronephrosis. No biliary or pancreatic ductal dilatation is present. There is no peripancreatic or pericholecystic infiltration. A small amount of abdominal and pelvic ascites is noted. Several loops of mildly dilated fluid-filled distal ileum are noted. There is stool within the terminal ileum. The small bowel appears to be dilated to the level of the ileocecal valve. There is no free air or abscess. No fistulas identified. The appendix is normal. The colon is decompressed. Equivocal wall thickening of the cecum may be due to underdistention. Major vasculature is patent. No acute fracture or suspicious lesion is identified within the visualized skeletal structures. IMPRESSION: Findings consistent with a small bowel obstruction. Multiple loops of mildly d ilated distal ileum. Small bowel appears to be dilated to the level of the ileocecal valve. Possible etiologies for the small bowel obstruction include mucosal edema or occult stricture. No free air, abscess or fistula. Normal appendix. Small amount of associated abdominal and pelvic ascites. ACT 112: Negative or not required by law. Electronically signed by: Jae Francis M.D. 01/22/2021 11:41 AM KUB X-Ray 01/23/21 07:00 XR KUB/Abdomen 1 view CLINICAL HISTORY: Follow-up suspected small bowel obstruction.. COMPARISON STUDY: CT of the abdomen and pelvis from 01/22/2021 TECHNIQUE: Single view of the abdomen. FINDINGS: The bowel gas pattern is within normal limits without evidence for dilatation or obstruction. There is no radiographic evidence for small bowel obstruction. Air and fecal material are seen within nondistended colon. There is no evidence for organomegaly or gross intra-abdominal mass. No abnormal calcifications are seen along the course of the urinary tracts bilaterally. No acute osseous pathology. IMPRESSION: 1.No acute intra-abdominal abnormality. No radiographic evidence for small bowel obstruction. ACT 112: Negative or not required by law. Electronically signed by: Nathaniel Arevalo M.D. 01/23/2021 8:43 AM Hospital Course (1) Small bowel obstruction: Presents with intractable nausea/vomiting, abdominal pain in the setting of known Crohn's disease on Humira and Pentasa CT abdomen/pelvis with small bowel obstruction with small bowel dilated down to the ileocecal valve Could be with terminal ileitis versus stricture Treated with IVFs, pain medication, antiemetics, bowel rest NGT not needed Much improved/resolved after starting IV SOlu Medrol-plan to transition to po course of budesonide 9mg daily on discharge x 8 wks as per GI rec -passing flatus, no BM, no further nausea, no abd pain, KUB no obstruction on 01/23, tolerating low fiber diet -Consult gastroenterology appreciated -discussed her care with her primary GI Dr. Riley at [facility] pediatric gastroenterology Stable for dc and have close f/u with primary GI (2) Nausea & vomiting: As above Secondary to SBO, now resolved (3) Crohn disease: Diagnosed at age 5, follows with pediatric GI in [place] Was in remission for 14 years on Pentasa alone Developed 15 pounds of weight loss and difficulty with appetite and worsening microcytic anemia over 2020-was started on Humira in mid October and has had 6 doses so far Had ileitis as per verbal report from her GI on phone in Mar 2020, but had normal MRE this past summer continue home Pentasa and Humira on discharge starting budesonide as above f/u with primary GI (4) Metabolic acidosis: Non-anion gap metabolic acidosis, serum bicarbonate 17, now resolved with IVF hydration (5) GERD (gastroesophageal reflux disease): Continue PPI (6) Microcytosis: MCV only 73, hemoglobin in normal range currently at 12 but is likely hemoconcentrated on admission hgb down to 10 after IVF hydration Fe studies with ferritin only 7, transferrin sat 14% -gave Venofer 300mg IV once daily x 2 doses while here Likely secondary to Crohn's disease and iron deficiency anemia DVT prophylaxis-SCDs Disposition-dc to home Full code Total Time Total Time Spent Total Time Spent (In Minutes): 35 min Discharge Plan Discharge Items Patient Disposition: Home - Self-Care Reason For Visit: SBO,CROHN'S Discharge Diagnosis: Small bowel obstruction, Crohn's disease Condition on Discharge: Good Activity: Resume your previous activity Non-emergency contact: Primary Care Provider and Molder Call non-emergency contact if: you have any medication questions, your symptoms worsen, your pain is not controlled, your pain is worsening and you have a fever Follow-up/Referrals: PCP,NO [Primary Care Provider] - (Follow up within 1-2 weeks.) Diet: Low Fiber Addtl Attending Provider Instructions: You were admitted with a bowel obstruction secondary to inflammation from your Crohn's disease. You had improvement after starting on steroids through the IV. Please continue on budesonide 9mg once daily x 8 weeks. Follow up with your GI doctor DANYA after discharge for further instructions on treatment for your condition. It was a pleasure taking care of you! Pending Studies at Discharge: No Stand-Alone Forms: [facility] [employer], Work/School Release Medications and DC Order Prescriptions: New budesonide [Entocort EC] 3 mg capsule,delayed,extend.release 9 mg PO QAM Qty: 90 RF: 0 Continued norgestimate-ethinyl estradiol [Sprintec (28)] 0.25-35 mg-mcg tablet 1 tab PO DAILY RF: 0 omeprazole 20 mg capsule,delayed release(DR/EC) 20 mg PO DAILY RF: 0 Humira(CF) 40 mg/0.4 mL syringe kit 40 mg SUBCUT UD RF: 0 ergocalciferol (vitamin D2) 1,250 mcg (50,000 unit) capsule 50,000 unit PO MONTHLY RF: 0 Pentasa 500 mg capsule, extended release 1,000 mg PO QID RF: 0 Discharge Orders: Discharge Order (Routine); Ordered 01/24/21 Ordered By: Fransisca Nino Admission Data Admit Date/Time: 01/22/21 13:30 Attending Provider: Fransisca Nino Admit Provider: Fransisca Nino Primary Care Provider: PCP,NO Other Providers: Festus Benson ; Fransisca iNno Coding Level of Care Code D/C DAY MANAGEMENT >30 MINS Diagnoses Small bowel obstruction K56.609 Nausea & vomiting R11.2 Vomiting Intractability: non-intractable Vomiting type: unspecified Crohn disease K50.912 Digestive disease complication type: with intestinal obstruction Gastrointestinal tract location: unspecified location Metabolic acidosis E87.2 GERD (gastroesophageal reflux disease) K21.9 Microcytosis R71.8
== END 2021-01-24 18:24 | disposition home or self-care (01) | DRG 386 ==
LOC: ED 09:39 → 3N 13:30